=== PATIENT | female | born 1950 | race Caucasian/White ===

== ENCOUNTER 2017-10-15 15:35 | Observation (INO) | payer OTHER, SELFPAY ==
[~2017-10-15] VITALS: Ht 162.6 cm; Wt 87.3 kg
[~2017-10-15 15:35] MED LIST: 5HTP; ACET500; ALBU90OI; ASPI81CH PO; Aspir-Low81 MG; CITA20 PO; CLOB.05TC; CYCL10; DOXY100T53 PO; DULO30 PO; HYDACE10B PO; HYDCHL25 PO; LEVA.63IS; LITH300C; LORA.5; MELA3; METF500; METF500 PO; MONT10T; Naprosyn375 MG PO; Norco 5-325 Ta1 EACH PO; Prinivil10 MG PO; Prozac20 MG PO; QVAR7.3 G1; SERT100 PO; THYR; THYR60 PO; Toprol Xl25 MG PO; Veetids 500500 MG PO; [UNRECOGNIZED DRUG - OTHER]; [UNRECOGNIZED DRUG - OTHER]
[2017-10-15 16:30] LABS: BASOPHILS ABSOLUTE AUTO 0.04 K/mm3 (0.00-0.23); BASOPHILS PERCENT AUTO 0 % (0-2); EOSINOPHILS ABSOLUTE AUTO 0.18 K/mm3 (0.00-0.68); EOSINOPHILS PERCENT AUTO 1 % (0-6); Hematocrit 44.9 % (33.0-51.0); Hemoglobin 13.8 g/dL (11.5-16.0); IMMATURE GRAN ABSOLUTE AUTO 0.07 K/mm3 (0.00-0.10); IMMATURE GRAN PERCENT AUTO 0 % (0-1); LYMPHOCYTES ABSOLUTE AUTO 3.61 K/mm3 (0.84-5.20); LYMPHOCYTES PERCENT AUTO 23 % (21-46); MONOCYTES ABSOLUTE AUTO 1.03 K/mm3 (0.16-1.47); MONOCYTES PERCENT AUTO 7 % (4-13); Mean Corpuscular HGB 24.8 pg (26.0-34.0); Mean Corpuscular HGB Conc 30.7 g/dL (31.5-36.5); Mean Corpuscular Volume 81 fL (80-100); NEUTROPHILS ABSOLUTE AUTO 10.89 K/mm3 (1.96-9.15); NEUTROPHILS PERCENT AUTO 69 % (41-73); Platelet Count 470 K/mm3 (150-400); RDW Coefficient Variation 15.3 % (11.7-14.2); RDW Standard Deviation 44.3 fL (35.1-46.3); Red Blood Cell Count 5.57 M/mm3 (3.80-5.20); White Blood Cell Count 15.82 K/mm3 (4.00-11.30)
[2017-10-15 16:42] LABS: Alanine Aminotransfer (ALT/SGP 28 U/L (12-78); Albumin, Blood 3.5 g/dL (3.4-5.0); Albumin/Globulin Ratio 0.8 (0.8-1.8); Alk Phos 105 U/L (50-136); Anion Gap 10 mmol/L (6-16); Aspartate Aminotrans (AST/SGOT 27 U/L (12-37); Bilirubin, Total 0.5 mg/dL (0.1-1.0); Blood Urea Nitrogen 16 mg/dL (8-24); Bun/Creatinine Ratio 23.4 (12.0-20.0); CO2, Blood 23 mmol/L (21-32); Calcium, Blood 9.4 mg/dL (8.5-10.1); Chloride, Blood 107 mmol/L (98-108); Creatinine, Blood 0.68 mg/dL (0.40-1.00); Globulin, Blood 4.4 g/dL (2.2-4.0); Glomerular Filtration Rate >60 (60-); Glucose, Blood 154 mg/dL (70-99); Potassium, Blood 3.7 mmol/L (3.5-5.5); Sodium, Blood 140 mmol/L (136-145); Total Protein, Blood 7.9 g/dL (6.4-8.2); Troponin I 0.155 ng/mL (0.000-0.040)
[2017-10-15] MEDS ORDERED: GLIP5ER PO (18:29)
[2017-10-15] MEDS ORDERED: FINA5 PO (18:29)
[2017-10-15] MEDS ORDERED: METF500 PO (18:30)
[2017-10-15] MEDS ORDERED: PRAV20 PO (18:31)
[2017-10-15] MEDS ORDERED: ASPI81CH PO (18:43)
[2017-10-15] MEDS ORDERED: LEVA.63IS INH (18:43)
[2017-10-15] MEDS ORDERED: LORA.5 PO (18:44)
[2017-10-15] MEDS ORDERED: MELA3 PO (18:48)
[2017-10-15] MEDS ORDERED: Flonase 0.05% N16 GM (18:48)
[2017-10-15 19:46] LABS: Free Thyroxine 0.89 ng/dL (0.70-1.60)
[2017-10-15] MEDS ORDERED: NASACORT10.8 ML INH (20:51)
[2017-10-15] MEDS ORDERED: BECL25NI (20:54)
[2017-10-16 05:38] LABS: Hematocrit 39.4 % (33.0-51.0); Hemoglobin 12.1 g/dL (11.5-16.0); Mean Corpuscular HGB 24.4 pg (26.0-34.0); Mean Corpuscular HGB Conc 30.7 g/dL (31.5-36.5); Mean Corpuscular Volume 80 fL (80-100); Mean Platelet Volume 10.4 fL (9.1-12.4); Platelet Count 437 K/mm3 (150-400); RDW Coefficient Variation 15.3 % (11.7-14.2); RDW Standard Deviation 44.7 fL (35.1-46.3); Red Blood Cell Count 4.95 M/mm3 (3.80-5.20); White Blood Cell Count 13.45 K/mm3 (4.00-11.30)
[2017-10-16 06:15] LABS: Anion Gap 10 mmol/L (6-16); Blood Urea Nitrogen 18 mg/dL (8-24); Bun/Creatinine Ratio 25.9 (12.0-20.0); CO2, Blood 22 mmol/L (21-32); Calcium, Blood 9.1 mg/dL (8.5-10.1); Chloride, Blood 107 mmol/L (98-108); Creatinine, Blood 0.69 mg/dL (0.40-1.00); Glomerular Filtration Rate >60 (60-); Glucose, Blood 143 mg/dL (70-99); Potassium, Blood 3.7 mmol/L (3.5-5.5); Sodium, Blood 139 mmol/L (136-145)
[2017-10-16 08:48] LABS: Creatine Kinase MB 0.8 ng/mL (0.0-3.6); Creatine Kinase MB Index 3.5 (0.0-4.0); Troponin I 0.075 ng/mL (0.000-0.040)
[2017-10-17 06:19] LABS: Anion Gap 9 mmol/L (6-16); Blood Urea Nitrogen 15 mg/dL (8-24); Bun/Creatinine Ratio 21.4 (12.0-20.0); CO2, Blood 26 mmol/L (21-32); Calcium, Blood 8.9 mg/dL (8.5-10.1); Chloride, Blood 106 mmol/L (98-108); Glomerular Filtration Rate >60 (60-); Glucose, Blood 96 mg/dL (70-99); Magnesium, Blood 1.9 mg/dL (1.6-2.4); Potassium, Blood 3.2 mmol/L (3.5-5.5); Sodium, Blood 141 mmol/L (136-145)
[2017-10-17 07:08] LABS: International Normalized Ratio 1.15
[2017-10-17] MEDS ORDERED: LANOXIN125 MCG PO (11:32)
[2017-10-17] MEDS ORDERED: PRAV20 PO (11:34)
[2017-10-17] MEDS ORDERED: XARELTO20 MG PO (11:35)
[2017-10-17] MEDS ORDERED: METO50 PO (11:36)
[2017-10-17] MEDS ORDERED: FURO40 PO (11:36)
[2017-10-17] MEDS ORDERED: K-Dur20 MEQ PO (11:37)
== END 2017-10-17 16:42 | disposition home or self-care (01) ==
LOC: ER 15:35 → PCU 15:36
PROVIDERS: Internal Medicine; Internal Medicine Interventional Cardiology; Physician Assistant
DX: I48.0 Paroxysmal atrial fibrillation (principal); I11.0 Hypertensive heart disease with heart failure; I50.21 Acute systolic (congestive) heart failure; R79.89 Other specified abnormal findings of blood chemistry; J45.909 Unspecified asthma, uncomplicated; I48.1 Persistent atrial fibrillation; D72.829 Elevated white blood cell count, unspecified; E03.9 Hypothyroidism, unspecified; F32.9 Major depressive disorder, single episode, unspecified; E11.9 Type 2 diabetes mellitus without complications; G47.33 Obstructive sleep apnea (adult) (pediatric); M79.7 Fibromyalgia; F41.9 Anxiety disorder, unspecified; F41.0 Panic disorder [episodic paroxysmal anxiety]; Z85.42 Personal history of malignant neoplasm of other parts of uterus; Z90.49 Acquired absence of other specified parts of digestive tract; Z90.710 Acquired absence of both cervix and uterus; Z98.890 Other specified postprocedural states; Z90.722 Acquired absence of ovaries, bilateral; Z87.891 Personal history of nicotine dependence; Z79.82 Long term (current) use of aspirin; Z79.84 Long term (current) use of oral hypoglycemic drugs; Z79.899 Other long term (current) drug therapy; Z88.5 Allergy status to narcotic agent; Z91.09 Other allergy status, other than to drugs and biological substances; Z88.8 Allergy status to other drugs, medicaments and biological substances; Z91.048 Other nonmedicinal substance allergy status
CPT/HCPCS: 36415; 71046; 80048; 80053; 82550; 82553; 82947; 83735; 83880; 84100; 84439; 84443; 84484; 85025; 85027; 85610; 93005; 93010; 93306; 93454; 94640; 94660; 94762; 96361; 96372; 96374; 96375; 96376; 99152; 99153; 99285; C1769; G0378; J1644; J1650; J1940; J2250; J3010; J3480; J7030; Q9967

== ENCOUNTER 2018-02-18 17:50 | Emergency (ER) | payer OTHER, SELFPAY ==
[~2018-02-18] VITALS: Ht 162.6 cm; Wt 80.3 kg
[~2018-02-18 17:50] MED LIST changes: +BECL25NI; +FINA5 PO; +FURO40 PO; +Flonase 0.05% N16 GM; +GLIP5ER PO; +K-Dur20 MEQ PO; +LANOXIN125 MCG PO; +LEVA.63IS INH; +LORA.5 PO; +MELA3 PO; +METO50 PO; +NASACORT10.8 ML INH; +PRAV20 PO; +XARELTO20 MG PO
[2018-02-18] MEDS ORDERED: LEVFLO500 PO (19:19)
== END 2018-02-18 19:25 | disposition home or self-care (01) ==
LOC: ER 17:50
DX: S91.332A Puncture wound without foreign body, left foot, initial encounter (principal); W22.8XXA Striking against or struck by other objects, initial encounter; Z88.5 Allergy status to narcotic agent; Z88.8 Allergy status to other drugs, medicaments and biological substances; Z88.1 Allergy status to other antibiotic agents; Z79.899 Other long term (current) drug therapy; Z79.82 Long term (current) use of aspirin; Z79.84 Long term (current) use of oral hypoglycemic drugs; I10 Essential (primary) hypertension; E11.9 Type 2 diabetes mellitus without complications; F41.9 Anxiety disorder, unspecified; Z87.891 Personal history of nicotine dependence
CPT/HCPCS: 90471; 90714; 99282

== ENCOUNTER 2018-03-11 10:09 | Day surgery (SDC) | payer OTHER, SELFPAY ==
[~2018-03-11 10:09] MED LIST changes: +LEVFLO500 PO
[2018-03-11] MEDS ORDERED: GLIP5 PO (14:06)
[2018-03-11] MEDS ORDERED: NP THYROID60 MG PO (14:06)
[2018-03-11] MEDS ORDERED: METF500C PO (14:06)
[2018-03-11] MEDS ORDERED: DIGOX125 MCG PO (14:07)
[2018-03-11] MEDS ORDERED: FURO40 PO (14:08)
[2018-03-11] MEDS ORDERED: POTCHL20ER PO ×2 (14:09→14:10)
[2018-03-11] MEDS ORDERED: METO50 PO (14:13)
[2018-03-11] MEDS ORDERED: LISI20 PO (14:13)
[2018-03-11] MEDS ORDERED: QVAR REDIHALE10.6 G1 INH (14:14)
[2018-03-11] MEDS ORDERED: LORA.5 PO (14:14)
[2018-03-11] MEDS ORDERED: Xopenex Hfa15 GM INH (14:15)
[2018-03-11] MEDS ORDERED: CLOB.05TO TOP (14:16)
[2018-03-11] MEDS ORDERED: ASPI81CH PO (14:17)
[2018-03-11] MEDS ORDERED: MELA3 PO (14:18)
[2018-03-11] MEDS ORDERED: Tylenol325 MG PO (14:18)
== END 2018-03-11 22:40 | disposition home or self-care (01) ==
LOC: MOI US 10:09 → MOI MAM 10:15 → MOI US 10:15
PROC: BH00ZZZ Plain Radiography of Right Breast (ICD-10-PCS; principal; 2018-03-11)
DX: C50.811 Malignant neoplasm of overlapping sites of right female breast (principal)
CPT/HCPCS: 19285; 36415; 77065; 80048; 85025; G0279

== ENCOUNTER 2018-03-16 09:06 | Day surgery (SDC) | payer OTHER, SELFPAY ==
[~2018-03-16] VITALS: Ht 162.6 cm; Wt 79.8 kg
[~2018-03-16 09:06] MED LIST changes: +CLOB.05TO TOP; +DIGOX125 MCG PO; +GLIP5 PO; +LISI20 PO; +METF500C PO; +NP THYROID60 MG PO; +POTCHL20ER PO; +QVAR REDIHALE10.6 G1 INH; +Tylenol325 MG PO; +Xopenex Hfa15 GM INH
[2018-03-16] MEDS ORDERED: DIPH50 (10:45)
== END 2018-03-16 22:50 | disposition home or self-care (01) ==
LOC: NM 09:06 → ORSCMMR 09:06 → NM 10:00
PROVIDERS: Surgery
PROC: 0HHT0NZ Insertion of Tissue Expander into Right Breast, Open Approach (ICD-10-PCS; principal; 2018-03-16 12:00)
PROC: 0HBT0ZZ Excision of Right Breast, Open Approach (ICD-10-PCS; principal; 2018-03-16 12:00)
PROC: 07B50ZX Excision of Right Axillary Lymphatic, Open Approach, Diagnostic (ICD-10-PCS; principal; 2018-03-16 12:00)
DX: C50.811 Malignant neoplasm of overlapping sites of right female breast (principal); C77.3 Secondary and unspecified malignant neoplasm of axilla and upper limb lymph nodes; I10 Essential (primary) hypertension; E11.9 Type 2 diabetes mellitus without complications; E03.9 Hypothyroidism, unspecified; G47.33 Obstructive sleep apnea (adult) (pediatric); Z79.899 Other long term (current) drug therapy
CPT/HCPCS: 38792; 76098; 82947; 88305; 88307; 88333; 88342; A9520; J0690; J1100; J2250; J2405; J3010; J7120; Q9968

== ENCOUNTER 2019-03-27 17:40 | Observation (INO) | payer OTHER ==
[~2019-03-27] VITALS: Ht 160 cm; Wt 78.8 kg
[~2019-03-27 17:40] MED LIST changes: -DIGOX125 MCG PO; +DIPH50; -LISI20 PO; +LO-DOSE ASPIRIN81 MG PO; -METF500C PO; +METO25ER PO; +Metformin HCl1000 MG PO; -QVAR REDIHALE10.6 G1 INH; -Xopenex Hfa15 GM INH; +ZESTRIL40 MG PO
[2019-03-27 19:36] LABS: BASOPHILS ABSOLUTE AUTO 0.05 K/mm3 (0.00-0.23); BASOPHILS PERCENT AUTO 1 % (0-2); EOSINOPHILS ABSOLUTE AUTO 0.17 K/mm3 (0.00-0.68); EOSINOPHILS PERCENT AUTO 2 % (0-6); Hematocrit 47.4 % (33.0-51.0); Hemoglobin 15.1 g/dL (11.5-16.0); IMMATURE GRAN ABSOLUTE AUTO 0.04 K/mm3 (0.00-0.10); IMMATURE GRAN PERCENT AUTO 0 % (0-1); LYMPHOCYTES ABSOLUTE AUTO 2.97 K/mm3 (0.84-5.20); LYMPHOCYTES PERCENT AUTO 28 % (21-46); MONOCYTES ABSOLUTE AUTO 0.87 K/mm3 (0.16-1.47); MONOCYTES PERCENT AUTO 8 % (4-13); Mean Corpuscular HGB 26.9 pg (26.0-34.0); Mean Corpuscular HGB Conc 31.9 g/dL (31.5-36.5); Mean Corpuscular Volume 84 fL (80-100); Mean Platelet Volume 10.8 fL (9.1-12.4); NEUTROPHILS PERCENT AUTO 61 % (41-73); Platelet Count 369 K/mm3 (150-400); RDW Standard Deviation 49.4 fL (35.1-46.3); Red Blood Cell Count 5.62 M/mm3 (3.80-5.20)
[2019-03-27 19:56] LABS: Alanine Aminotransfer (ALT/SGP 26 U/L (12-78); Albumin, Blood 3.5 g/dL (3.4-5.0); Albumin/Globulin Ratio 0.9 (0.8-1.8); Alk Phos 110 U/L (50-136); Anion Gap 8 mmol/L (6-16); Aspartate Aminotrans (AST/SGOT 25 U/L (12-37); Blood Urea Nitrogen 17 mg/dL (8-24); Bun/Creatinine Ratio 23.3 (12.0-20.0); CO2, Blood 25 mmol/L (21-32); Calcium, Blood 9.8 mg/dL (8.5-10.1); Chloride, Blood 106 mmol/L (98-108); Creatinine, Blood 0.73 mg/dL (0.40-1.00); Glomerular Filtration Rate >60 (60-); Glucose, Blood 118 mg/dL (70-99); Potassium, Blood 4.1 mmol/L (3.5-5.5); Sodium, Blood 139 mmol/L (136-145); Total Protein, Blood 7.5 g/dL (6.4-8.2); Troponin I <0.015 ng/mL (0.000-0.040)
[2019-03-27] MEDS ORDERED: DIGOX125 MCG PO (21:46)
[2019-03-27] MEDS ORDERED: OMEPRAZOLE20 MG PO (22:19)
[2019-03-27] MEDS ORDERED: Xopenex Hfa15 GM INH (22:20)
[2019-03-27] MEDS ORDERED: QVAR REDIHALE10.6 G1 INH (22:20)
[2019-03-27] MEDS ORDERED: Coq-10100 MG PO (22:21)
[2019-03-27] MEDS ORDERED: MELATONIN5 M1 PO (22:21)
[2019-03-27] MEDS ORDERED: Potassium99 MG PO (22:22)
[2019-03-27] MEDS ORDERED: BIOTIN PO (22:23)
[2019-03-28 04:33] LABS: Hematocrit 45.5 % (33.0-51.0); Hemoglobin 14.3 g/dL (11.5-16.0); Mean Corpuscular HGB Conc 31.4 g/dL (31.5-36.5); Mean Corpuscular Volume 86 fL (80-100); Mean Platelet Volume 10.1 fL (9.1-12.4); Platelet Count 344 K/mm3 (150-400); RDW Coefficient Variation 15.8 % (11.7-14.2); RDW Standard Deviation 49.4 fL (35.1-46.3); Red Blood Cell Count 5.29 M/mm3 (3.80-5.20); White Blood Cell Count 13.52 K/mm3 (4.00-11.30)
[2019-03-28 04:47] LABS: International Normalized Ratio 1.15
[2019-03-28 04:49] LABS: Anion Gap 6 mmol/L (6-16); Blood Urea Nitrogen 16 mg/dL (8-24); CO2, Blood 25 mmol/L (21-32); Chloride, Blood 102 mmol/L (98-108); Creatinine, Blood 0.67 mg/dL (0.40-1.00); Glomerular Filtration Rate >60 (60-); Glucose, Blood 200 mg/dL (70-99); Potassium, Blood 4.2 mmol/L (3.5-5.5); Sodium, Blood 133 mmol/L (136-145)
[2019-03-28 07:43] LABS: Source, Urine Catheter
[2019-03-28 08:12] LABS: Bilirubin, Urine Neg (Neg); Blood, Urine Neg (Neg); Glucose Qualitative, Urine Neg (Neg); Ketones, Urine 3+ (Neg); Leukocyte Esterase, Urine Neg (Neg); Nitrite, Urine Neg (Neg); Protein, Urine 3+ (Neg); Specific Gravity, Urine 1.025 (1.003-1.022); Urobilinogen, Urine 1+ (Normal)
[2019-03-28 08:49] LABS: Appearance, Urine Hazy (Clear); Color, Urine Yellow (P-Yellow)
[2019-03-28 08:55] LABS: Red Blood Cells, Urine Not Seen /hpf (0-2); Squamous Epithelial Cells Many /hpf (Few)
[2019-03-28 08:56] LABS: Bacteria Few /hpf; White Blood Cells, Urine Rare /hpf (0-5)
[2019-03-28 09:07] LABS: CHOL/HDL RATIO 5.2; Cholesterol 160 mg/dL (50-200); HDL Cholesterol 31 mg/dL (>39); LDL/HDL RATIO 3.6; Low Density Lipoprotein Chol 112 mg/dL (0-110); Triglycerides 84 mg/dL (30-160); Very Low Density Lipoprot Chol 16 mg/dL (6-32)
[2019-03-28 09:14] LABS: Digoxin (Lanoxin) 0.33 ug/mL (0.80-2.00)
--- NOTE | 2019-03-28 13:05 | NUR ---
PATIENT CONTINUES TO HAVE SOME ANXIETY THIS MORNING. SHE IS RESTLESS PHYSICALLY AND REPORTS FEELING ANXIOUS. UTILIZED DISTRACTION (TV, PT, MULTIPLE TESTS IN ROOM) AND MEDICATION (ATIVAN). PATIENT APPEARS MORE SETTLED AND REPORTS SHE IS STILL FEELING ANXIOUS. ENCOURAGED HER TO GET SOME REST (SHE ALSO REPORTS LACK OF SLEEP) AND PROVIDED A QUIET ENVIRONMENT. CALL LIGHT WITHIN REACH, BED ALARM ON.
--- NOTE | 2019-03-28 18:41 | NUR ---
PATIENT CONTINUED TO HAVE SOME ANXIETY TODAY. PATIENT ABLE TO NAP INTERMITTANTLY. PATIENT ABLE TO USE SOFT TOUCH CALL LIGHT APPROPRIATELY TO VOID. RIGHT LEG CONTINUES TO BE WEAK AND FOR THE PATIENT TO HAVE MINIMAL CONTROL (BARELY ABLE TO BEND IN THE BED, DRAGS ON THE FLOOR FOR STAND PIVOT TRANSFERS). RIGHT HAND AND ARM ALSO CONTINUES TO BE WEAK WITH MINIMAL CONTROL (HARD FOR HER TO LIFT, GRASP OR PULL). PATIENT CONTINUES TO HAVE SOME CONFUSION AND FORGETFULNESS (EX: SHE FORGOT THAT SHE TOLD HER TO NOT COME IN AND VISIT HER TODAY). PATIENT IS PLEASANT, REDIRECTABLE, AND FOLLOWS COMMANDS. PATIENT HAS A FAIR APPETITE (UP TO 75% OF MEALS) AND IS ABLE TO FEED HERSELF WITHOUT DIFFICULTY.
--- NOTE | 2019-03-28 19:56 | NUR ---
HEARD ALARM GO OFF, HEADED DOWN HALLWAY IMMEDIETELY. WALKED INTO ROOM TO FIND PATIENT CRAWLING OFF OF THE BED ONTO THE FLOOR. ATTEMPTED TO STOP HER BUT SHE KEPT CRAWLING AND WAS HEADING TOWARDS HER BSC. I IMMEDIETELY CALLED FOR LIFTING ASSISTANCE. I ASKED HER IF SHE NEEDED TO USE THE BATHROOM AND SHE SAID YES. I ASKED HER WHY SHE DIDN'T USE HER CALL LIGHT, SHE SAID SHE WAS "TIRED OF PESTERING YOU PEOPLE" I EXPLAINED TO HER THAT THIS IS WHAT WE ARE HERE FOR AND SHE NEEDS TO USE HER CALL LIGHT FOR SAFETY. PT WAS TEARFUL AND SEEMED A LITTLE CONFUSED. OTHER STAFF CAME IN AND WE ASSISTED HER TO THE BSC, CHANGED HER ATTENDS AND GOT HER BACK INTO BED AGAIN. WILL POSSIBLY NEED A LEEANNE RESTRAINT FOR HIS PATIENT SHE SEEMS VERY FORGETFUL AND A LITTLE CONFUSED. PRIMARY NURSE WILL BE SPEAKING WITH THE DR ABOUT THIS. WE MADE SURE HER BED ALARM WAS BACK ON AGAIN BEFORE WE LEFT THE PATIENT'S ROOM. NO OTHER APPARENT SIGNS OF DISTRESS. PT DENIES NEED FOR ANYTHING ELSE AT THIS TIME. CALL LIGHT IS IN REACH. NO APPARENT INJURIES TO THE PATIENT, PT DENIED ANY DISCOMFORT OTHER THAN THE NEED TO USE THE BSC. INSURANCE UNDERWRITER SALES WILL BE DOING VS.
--- NOTE | 2019-03-28 20:22 | NUR ---
DISCUSSED PT'S RECENT IMPULSIVITY, CONFUSION AND FALL RISK W/CIRO, PULMONOLOGIST AND LEEANNE VEST RESTRAINT RX'D AND APPLIED. BED ALARM REMAINS ON W/ADDITIONAL FALL PRECAUTIONS IN PLACE.
--- NOTE | 2019-03-28 23:30 | NUR ---
CIRO AFRICAN HISTORY PROFESSOR ALERTED TO PT'S PERSISTENT HYPERTENSION (BP 160'S-170'S/100'S) DESPITE RECIEVING ANXIETY AND SCHEDULED BP MEDS. HE WAS ALERTED TO KNOWN AFIB WELL W/HR 100'S-120'S BPM. NEW ORDERS RECIEVED FOR LABETOLOL 10MG IV Q4H PRN FOR SBP>200 AND NS AT 200 ML/HR X1L. WILL COMMENCE MEDS UPON APPROVAL BY PHARMACY.
--- NOTE | 2019-03-29 04:28 | NUR ---
BP HASN'T IMPROVED BUT SHE DOES NOT MEET PRN LABETOLOL PARAMETERS. HR SLIGHTLY IMPROVED W/IVF INFUSING. SHE IS ASYMPTOMATIC OF CARDIAC DISTRESS THOUGH.
--- NOTE | 2019-03-29 06:03 | NUR ---
SUMMARY: PT IS ORIENTED X2 BUT FORGETFULL AND IS FALL RISK MAKING ATTEMPTS OOB BY SELF. SHE REQUIRED LEEANNE VEST ORDER THIS SHIFT AND THIS HASN'T BEEN ABLE TO BE SAFELY DC'D. SHE CALLS APPROPRIATELY SOME OF THE TIME BUT IS STILL MAKING ATTEMPTS OOB BY SELF. ATIVAN WAS RECIEVED PRN FOR RESTLESS, IMPULSIVITY AND ANXIETY X2 DOSES. PT HAS ALSO HAD PERSISTENT HYPERTENSION THIS SHIFT W/NEW ORDER RECIEVED FOR LABETOLOL FOR SBP>200 BUT PT HASNT MET THESE PARAMETERS. CIRO RX'D 1L NS AT 200 ML/HR FOR TACHYCARDIA W/KNOWN HX AFIB AND PT IS NOW MORE SOB W/EXERTION AND HAS DEVELOPED MILD CRACKLES IN LUNG BASES THIS AM. WHEEZES ARE INTERMITTENT W/BX TX'S RECIEVED. I/O'S ARE (+) BUT PT HAS BEEN INCONTINENT MULTIPLE TIMES SO FLUID BALANCE ISN'T ACCURATE. PT LIKELY NEEDS SOME DIURESIS AND WILL ENSURE DAY STAFF ARE AWARE. PAGED BUT AWAITING CALL BACK AT THIS TIME. SHE TOLERATES HOME CPAP W/CONT BIOX INTACT. AFIB AT 90'S-100'S PER TELEMETRY. NO ACUTE CHANGES, VSS/AFEBRILE. WCTM AND REPORT TO DAY RN.
--- NOTE | 2019-03-29 15:38 | NUR ---
Per admit trigger, I attempted to meet with pt regarding an Advanced Directive. She is quite confused, and in my estimation,is unable to understand this document. No family at bedside. Per chart, spouse is attentive and a capable decision-maker. Rajwinder is [employer]. I will remain available.
--- NOTE | 2019-03-29 17:34 | NUR ---
SHIFT SUMMARY: PATIENT HAS BEEN ALERT TO SELF AND SITUATION THIS SHIFT WITH NO C/O PAIN. PATIENT CONTIUES ON TELE WITH A-FIB. CT WAS COMPLETED THIS AFTERNOON AFTER CHARGE NURSE WAS ABLE TO PLACE A PERIPHERAL LINE IN THE LAC. PATIENT IS A 2 PERSON ASSIST FOR TRANSFERS AND IS USING THE [employer] COMMODE FOR TOILETING. PATIENT HAS BEEN PLEASANT AND COOPERATIVE WITH CARE, USING CALL LIGHT FOR HELP WHEN NEEDED. WAS AT BEDSIDE THIS MORNING AND FRIENDS HAVE BEEN IN AND OUT THIS AFTERNOON. PATIENT IS UP TO CHAIR FOR MEALS.
--- NOTE | 2019-03-29 20:15 | NUR ---
PT HAS IV'S PRESENT TO R.WRIST AND L.AC, BOTH SL. L.AC SITE WAS PLACED BY STAFF DURING CTA AND PREVIOUS R.UA IV INFILTRATED PER SHIFT REPORT.
--- NOTE | 2019-03-29 20:21 | NUR ---
PT'S SON (ANNE-MARIE STEPHENS) CALLED FOR AN UPDATE ON PT'S STATUS. HE INITIALLY SPOKE W/HER ON THE PHONE THEN QUESTIONED RN TO WHETHER SPEECH AND CURRENT MENTATION WAS HOW SHE'D BEEN. HE ADMITTED THAT HER CURRENT PRESENTATION WAS NOT BASELINE FOR HER AND HE'D HAD NO IDEA SHE'D BEEN OFF HER HOME MEDS OR EXPERIENCING STROKE LIKE SYMPTOMS. HE'D HEARD FROM PT'S [employer] FRIEND THIS AFTERNOON THAT SHE'D BEEN ADMITTED W/A POSSIBLE STROKE WHICH WAS NEW NEWS TO HIM. HE ADMITTED THAT PT'S ISN'T "100% HIMSELF AND CARES DEEPLY BUT HADN'T BEEN ABLE TO CLEARLY RELAY ANY INFO" TO HIM. PT AUTHORIZED SON TO BE ADDED TO HIPPA DISCLOSURE AND PROGRESS NOTE/CTA RESULTS WERE DISCUSSED W/HIM. HE WAS VERY GRATEFUL FOR THE UPDATE AND INTENDS TO COME VISIT FROM [place] SOON. HE WOULD ALSO LIKE TO BE NOTIFIED OF ANY UPDATES, CHANGES OR TRANSFERS TO ANOTHER FACITITY AND STATED HE IS REACHABLE ALL HOURS OF THE DAY/NIGHT. HIS PHONE NUMBERS ARE CELL AND HOME . PT IS POSSIBLE COBRA T/F TO [facility] PENDING NOREEN CONSULTATION AND INSTRUCTION FROM 'S. SON WAS MADE AWARE OF THIS WELL.
--- NOTE | 2019-03-29 22:10 | NUR ---
CELESTE TANNER CONSULTING W/PT IN ROOM AND DISCUSSING PT STATUS, STUDIES AND RESULTS W/NEUROLOGIST VIA PHONE AT THIS TIME. THIS RN AWAITING FURTHER INSTRUCTION. PT W/O ACUTE CHANGES AND NEUROS ARE STABLE CURRENTLY. SHE CONT'S TO HAVE R.SIDE WEAKNESS/DEFICITS BUT THESE HAVEN'T WORSENED. WCTM AND IMPLEMENT ANY NEW ORDERS RECIEVED.
--- NOTE | 2019-03-30 00:03 | NUR ---
NO NEW ORDERS RECIEVED FROM CELESTE TANNER AFTER HIS CONSULTATION. HE STATED MRI IS LIKELY NEEDED AND HE WILL DISCUSS THIS W/DAY MD. NO T/F ORDERS IN PLACE TONIGHT BUT PT AGREED TO T/F TO [facility] OR [facility] IF THIS IS NECESSARY. WCTM CLOSELY. SHE REMAINS VERY FATIGUED AND IS SLEEPING COMFORTABLY AT THIS TIME. NEURO CHECKS UNCHANGED.
--- NOTE | 2019-03-30 05:07 | NUR ---
SUMMARY: NEURO AT [facility] WAS CONSULTED BY CIRO (WHARF HAND) THIS SHIFT W/CTA RESULTS REVIEWED. THEY RECOMMENDED DISCUSSING CASE W/RADIOLOGY TO SEE IF PT COULD HAVE MRI OF HEAD AND IN THE EVENT OF ABNORMAL RESULTS OR WORSENING SYMPTOMS, T/F WOULD BE ACCEPTED. IT WAS NOT DEEMED NECESSARY AT THIS TIME. SEE CIRO'S PROGRESS NOTE FOR THEIR RECOMMENDATIONS. NO NEW ORDERS WERE PLACED BY HIM THIS SHIFT PT'S CURRENT TX SEEM TO BE IN ALIGNMENT W/THEIR SUGGESTIONS. NEUROS CURRENTLY REMAIN STABLE. PT CONVERSES MOSTLY APPROPRIATELY BUT IS FORGEFULL AT TIMES. SHE HASN'T BEEN IMPULSIVE OOB THIS SHIFT AND HASN'T REQUIRED PRN ATIVAN. SHE ALSO USED CALL LIGHT APPROPRIATELY T/O NOCTE TO ALERT STAFF OF INCONTINENCE AND NEED FOR ATTENDS CHANGES. R.SIDE DEFICITS PERSIST W/WEAKNESS GREATER TO THIS SIDE AND COORDINATION LACKING. THIS RN HAS NOT AMBULATED PT BUT IT IS REPORTED THAT PT DRAGS RLE DURING T/F'S. HTN PERSISTS BUT ALLOWING PERMISSIVE HTN WAS ADVISED, SBP WAS 160'S AND DBP 100'S. SHE WORE HOME CPAP W/CONT BIOX INTACT. PT REMAINS IN AFIB AT 80'S-100'S PER TELEMETRY. NO ACUTE CHANGES, VSS/AFEBRILE. SON CALLED AND PT ADDED HIM TO HIPPA FORM SO UPDATE WAS PROVIDED. HE INTENDS TO VISIT FROM [facility] SOON AND WOULD LIKE INFORMED OF ANY CHANGES OR PENDING T/F'S. WCTM AND REPORT TO DAY RN.
--- NOTE | 2019-03-30 17:11 | NUR ---
SHIFT SUMMARY: PATIENT HAS BEEN A/O X 3 THIS SHIFT SHOWING MORE CLARITY FROM YESTERDAY. SPEECH IS CLEAR AND PATIENT IS PLEASANT AND MAKING JOKES WITH NURSING STAFF. NO C/ O PAIN. PATIENT CONTINUES TO BE COMPLIANT WITH CARE. PATIENT CONTINUES TO USE THE BEDSIDE COMMODE FOR TOILETING. VERY MILD RIGHTSIDE WEAKNESS OBSERVED. MRI WAS COMPLETED TODAY. SON WAS MADE AWARE. PATIENT HAS HAD VISITORS ON AND OFF ALL DAY.
--- NOTE | 2019-03-31 04:53 | NUR ---
SHIFT SUMMARY PT UP WITH ASSIST OF ONE AND GAIT BELT TO BEDSIDE COMMODE, HAD BOWEL MOVEMENT AND VOIDED IN LARGE AMOUNTS. PT ALERT AND ORIENTED, CPAP ON DURING THE NIGHT. PT HAS SLEPT WELL T/O NIGHT. NO ACUTE EVENTS NOTED, WILL CONTINUE TO MONITOR.
[2019-03-31 07:42] LABS: BASOPHILS ABSOLUTE AUTO 0.07 K/mm3 (0.00-0.23); BASOPHILS PERCENT AUTO 1 % (0-2); EOSINOPHILS ABSOLUTE AUTO 0.32 K/mm3 (0.00-0.68); EOSINOPHILS PERCENT AUTO 3 % (0-6); Hemoglobin 14.9 g/dL (11.5-16.0); IMMATURE GRAN ABSOLUTE AUTO 0.04 K/mm3 (0.00-0.10); IMMATURE GRAN PERCENT AUTO 0 % (0-1); LYMPHOCYTES PERCENT AUTO 26 % (21-46); MONOCYTES PERCENT AUTO 10 % (4-13); Mean Corpuscular HGB 26.8 pg (26.0-34.0); Mean Corpuscular HGB Conc 31.7 g/dL (31.5-36.5); Mean Corpuscular Volume 85 fL (80-100); Mean Platelet Volume 10.2 fL (9.1-12.4); NEUTROPHILS ABSOLUTE AUTO 6.18 K/mm3 (1.96-9.15); NEUTROPHILS PERCENT AUTO 61 % (41-73); Platelet Count 312 K/mm3 (150-400); RDW Coefficient Variation 16.5 % (11.7-14.2); RDW Standard Deviation 48.6 fL (35.1-46.3); Red Blood Cell Count 5.55 M/mm3 (3.80-5.20); White Blood Cell Count 10.21 K/mm3 (4.00-11.30)
[2019-03-31 08:06] LABS: Anion Gap 7 mmol/L (6-16); Blood Urea Nitrogen 18 mg/dL (8-24); Bun/Creatinine Ratio 25.2 (12.0-20.0); CO2, Blood 29 mmol/L (21-32); Chloride, Blood 106 mmol/L (98-108); Creatinine, Blood 0.71 mg/dL (0.40-1.00); Glomerular Filtration Rate >60 (60-); Glucose, Blood 133 mg/dL (70-99); Potassium, Blood 3.7 mmol/L (3.5-5.5); Sodium, Blood 142 mmol/L (136-145)
[2019-03-31] MEDS ORDERED: ASPI325 PO (10:13)
[2019-03-31] MEDS ORDERED: FURO40 PO (10:13)
[2019-03-31] MEDS ORDERED: XARELTO20 MG PO (10:14)
[2019-03-31] MEDS ORDERED: SPIR25 PO (10:14)
--- NOTE | 2019-03-31 13:21 | NUR ---
SUMMARY[facility] REPORT CALLED TO RENZO THE NURSE, TRANSPORTATION ARRANGED BY DISCHARGE PLANNERS, PT TAKEN OUT SAFELY VIA WHEELCHAIR
== END 2019-03-31 13:10 ==
LOC: ER 17:40 → MEDS 17:41
PROVIDERS: Emergency Medicine; Internal Medicine; Nurse Practitioner Acute Care; ADMIT Hospitalist
DX: I63.9 Cerebral infarction, unspecified (principal); R27.0 Ataxia, unspecified; I11.0 Hypertensive heart disease with heart failure; I50.42 Chronic combined systolic (congestive) and diastolic (congestive) heart failure; E11.9 Type 2 diabetes mellitus without complications; I48.2 Chronic atrial fibrillation; J45.20 Mild intermittent asthma, uncomplicated; F41.1 Generalized anxiety disorder; G47.33 Obstructive sleep apnea (adult) (pediatric); E66.9 Obesity, unspecified; Z79.82 Long term (current) use of aspirin; Z79.899 Other long term (current) drug therapy; Z79.84 Long term (current) use of oral hypoglycemic drugs; Z88.5 Allergy status to narcotic agent; Z91.048 Other nonmedicinal substance allergy status; Z68.29 Body mass index [BMI] 29.0-29.9, adult
CPT/HCPCS: 36415; 70450; 70496; 70498; 70551; 80048; 80053; 80061; 80162; 81001; 82947; 83735; 84443; 84484; 85025; 85027; 85610; 85651; 86140; 93005; 93010; 93880; 94640; 94762; 96372; 96374; 97110; 97116; 97162; 97166; 97530; 97535; 99285-25; A9270; C8929; G0378; J1650; J2060; J7030; Q9957; Q9967

== ENCOUNTER 2019-05-03 21:58 | Emergency (ER) | payer OTHER ==
[~2019-05-03] VITALS: Ht 160 cm; Wt 72.6 kg
[~2019-05-03 21:58] MED LIST changes: +ASPI325 PO; +BIOTIN PO; +Coq-10100 MG PO; +DIGOX125 MCG PO; +MELATONIN5 M1 PO; +OMEPRAZOLE20 MG PO; +Potassium99 MG PO; +QVAR REDIHALE10.6 G1 INH; +SPIR25 PO; +Xopenex Hfa15 GM INH
[2019-05-03 22:25] LABS: BASOPHILS ABSOLUTE AUTO 0.06 K/mm3 (0.00-0.23); BASOPHILS PERCENT AUTO 1 % (0-2); EOSINOPHILS ABSOLUTE AUTO 0.14 K/mm3 (0.00-0.68); EOSINOPHILS PERCENT AUTO 1 % (0-6); Hematocrit 49.4 % (33.0-51.0); Hemoglobin 15.8 g/dL (11.5-16.0); IMMATURE GRAN ABSOLUTE AUTO 0.11 K/mm3 (0.00-0.10); IMMATURE GRAN PERCENT AUTO 1 % (0-1); LYMPHOCYTES ABSOLUTE AUTO 3.61 K/mm3 (0.84-5.20); LYMPHOCYTES PERCENT AUTO 31 % (21-46); MONOCYTES ABSOLUTE AUTO 0.87 K/mm3 (0.16-1.47); MONOCYTES PERCENT AUTO 7 % (4-13); Mean Corpuscular HGB 27.6 pg (26.0-34.0); Mean Corpuscular Volume 86 fL (80-100); Mean Platelet Volume 10.2 fL (9.1-12.4); NEUTROPHILS ABSOLUTE AUTO 6.94 K/mm3 (1.96-9.15); NEUTROPHILS PERCENT AUTO 59 % (41-73); Platelet Count 264 K/mm3 (150-400); RDW Coefficient Variation 14.5 % (11.7-14.2); RDW Standard Deviation 45.5 fL (35.1-46.3); Red Blood Cell Count 5.72 M/mm3 (3.80-5.20); White Blood Cell Count 11.73 K/mm3 (4.00-11.30)
[2019-05-03 22:47] LABS: Alanine Aminotransfer (ALT/SGP 57 U/L (12-78); Albumin, Blood 3.6 g/dL (3.4-5.0); Albumin/Globulin Ratio 0.8 (0.8-1.8); Alk Phos 145 U/L (50-136); Anion Gap 8 mmol/L (6-16); Aspartate Aminotrans (AST/SGOT 39 U/L (12-37); Bilirubin, Total 0.5 mg/dL (0.1-1.0); Blood Urea Nitrogen 16 mg/dL (8-24); Bun/Creatinine Ratio 18.7 (12.0-20.0); CO2, Blood 26 mmol/L (21-32); Calcium, Blood 9.7 mg/dL (8.5-10.1); Chloride, Blood 104 mmol/L (98-108); Creatinine, Blood 0.86 mg/dL (0.40-1.00); Globulin, Blood 4.5 g/dL (2.2-4.0); Glomerular Filtration Rate >60 (60-); Glucose, Blood 175 mg/dL (70-99); Potassium, Blood 4.7 mmol/L (3.5-5.5); Sodium, Blood 138 mmol/L (136-145); Total Protein, Blood 8.1 g/dL (6.4-8.2); Troponin I <0.015 ng/mL (0.000-0.040)
[2019-05-03] MEDS ORDERED: OMEPRAZOLE MAGN20 MG PO (23:21)
[2019-05-03] MEDS ORDERED: Spironolactone25 MG PO (23:35)
== END 2019-05-03 23:57 | disposition home or self-care (01) ==
LOC: ER 21:58
PROVIDERS: Emergency Medicine
DX: I48.91 Unspecified atrial fibrillation (principal); Z88.5 Allergy status to narcotic agent; Z88.8 Allergy status to other drugs, medicaments and biological substances; Z79.899 Other long term (current) drug therapy; Z79.84 Long term (current) use of oral hypoglycemic drugs; Z79.82 Long term (current) use of aspirin; E11.9 Type 2 diabetes mellitus without complications; F41.9 Anxiety disorder, unspecified; K21.9 Gastro-esophageal reflux disease without esophagitis; Z87.891 Personal history of nicotine dependence
CPT/HCPCS: 36415; 71046; 80053; 84484; 85025; 93005; 93010; 99285-25

== ENCOUNTER → 2019-05-04 | Outpatient (CLI) | payer OTHER ==
[~2019-05-04] MED LIST changes: +OMEPRAZOLE MAGN20 MG PO; +Spironolactone25 MG PO
[2019-05-06 16:06] LABS: HPV 16 Negative (Negative); HPV 18 Negative (Negative); HPV OTHER HR TYPES Negative (Negative)
== END | disposition home or self-care (01) ==
LOC: LAB 12:17 → LAB SHORT 12:17
PROVIDERS: Obstetrics & Gynecology
DX: Z01.419 Encounter for gynecological examination (general) (routine) without abnormal findings (principal)
CPT/HCPCS: 87624; G0123

== ENCOUNTER 2019-09-20 21:43 | Emergency (ER) | payer OTHER ==
[~2019-09-20] VITALS: Ht 162.6 cm; Wt 73.9 kg
[2019-09-20] MEDS ORDERED: ASCO500 PO (23:18)
[2019-09-20] MEDS ORDERED: TRAZ50 PO (23:24)
[2019-09-20] MEDS ORDERED: ACET500 PO (23:26)
[2019-09-21] MEDS ORDERED: PENVK500 PO (00:12)
== END 2019-09-21 00:45 | disposition home or self-care (01) ==
LOC: ER 21:43
DX: K02.9 Dental caries, unspecified (principal); E11.9 Type 2 diabetes mellitus without complications; G47.30 Sleep apnea, unspecified; F41.9 Anxiety disorder, unspecified; I48.91 Unspecified atrial fibrillation; I50.9 Heart failure, unspecified; K21.9 Gastro-esophageal reflux disease without esophagitis; Z87.891 Personal history of nicotine dependence; Z88.5 Allergy status to narcotic agent; Z88.8 Allergy status to other drugs, medicaments and biological substances; Z79.4 Long term (current) use of insulin; Z79.899 Other long term (current) drug therapy; Z79.82 Long term (current) use of aspirin
CPT/HCPCS: 99282; A9270

== ENCOUNTER 2023-02-15 17:59 | Emergency (ER) | payer OTHER ==
[~2023-02-15] VITALS: Ht 160 cm; Wt 74.8 kg
[~2023-02-15 17:59] MED LIST changes: +ACET500 PO; +ASCO500 PO; +Celexa20 MG PO; +EUTHYROX88 MCG PO; +PENVK500 PO; +TRAZ50 PO; +XARELTO10 M1 PO
[2023-02-15] MEDS ORDERED: Ventolin/Prove6.7 GM INH (18:35)
[2023-02-15] MEDS ORDERED: XARELTO20 M1 PO (18:35)
[2023-02-15] MEDS ORDERED: ZOLOFT25 MG PO (18:36)
[2023-02-15] MEDS ORDERED: FLOVENT HFA12 GM (18:36)
[2023-02-15 19:26] LABS: Source, Urine Clean Catch
[2023-02-15 19:30] LABS: Bilirubin, Urine Neg (Neg); Blood, Urine 2+ (Neg); Glucose Qualitative, Urine 4+ (Neg); Ketones, Urine 2+ (Neg); Leukocyte Esterase, Urine 2+ (Neg); Nitrite, Urine Neg (Neg); Protein, Urine 3+ (Neg); Urobilinogen, Urine NORM (Normal)
[2023-02-15 19:35] LABS: BASOPHILS ABSOLUTE AUTO 0.13 K/mm3 (0.00-0.23); BASOPHILS PERCENT AUTO 1 % (0-2); EOSINOPHILS ABSOLUTE AUTO 0.25 K/mm3 (0.00-0.68); EOSINOPHILS PERCENT AUTO 1 % (0-6); Hematocrit 41.4 % (33.0-51.0); Hemoglobin 13.7 g/dL (11.5-16.0); IMMATURE GRAN ABSOLUTE AUTO 0.28 K/mm3 (0.00-0.10); IMMATURE GRAN PERCENT AUTO 2 % (0-1); LYMPHOCYTES ABSOLUTE AUTO 3.35 K/mm3 (0.84-5.20); LYMPHOCYTES PERCENT AUTO 17 % (21-46); MONOCYTES ABSOLUTE AUTO 0.96 K/mm3 (0.16-1.47); MONOCYTES PERCENT AUTO 5 % (4-13); Mean Corpuscular HGB Conc 33.1 g/dL (31.5-36.5); Mean Corpuscular Volume 85 fL (80-100); Mean Platelet Volume 10.2 fL (9.1-12.4); NEUTROPHILS ABSOLUTE AUTO 14.27 K/mm3 (1.96-9.15); NEUTROPHILS PERCENT AUTO 74 % (41-73); Platelet Count 387 K/mm3 (150-400); RDW Coefficient Variation 13.2 % (11.7-14.2); RDW Standard Deviation 40.8 fL (35.1-46.3); Red Blood Cell Count 4.89 M/mm3 (3.80-5.20); White Blood Cell Count 19.24 K/mm3 (4.00-11.30)
[2023-02-15 19:41] LABS: Appearance, Urine Hazy (Clear); Color, Urine Pale Yellow (P-Yellow)
[2023-02-15 19:42] LABS: Bacteria Many /hpf; Hyaline Casts 0-2 /lpf (0-2); Squamous Epithelial Cells Few /hpf (Few)
[2023-02-15 19:48] LABS: International Normalized Ratio 1.03; Prothrombin Time Results 10.8 Sec (9.7-11.5)
[2023-02-15 20:15] LABS: Albumin, Blood 3.4 g/dL (3.4-5.0); Albumin/Globulin Ratio 0.8 (0.8-1.8); Bilirubin, Total 0.4 mg/dL (0.1-1.0); Bun/Creatinine Ratio 25.2 (12.0-20.0); Calcium, Blood 9.3 mg/dL (8.5-10.1); Creatinine, Blood 0.68 mg/dL (0.40-1.00); Globulin, Blood 4.2 g/dL (2.2-4.0); Potassium, Blood 3.7 mmol/L (3.5-5.5); Total Protein, Blood 7.6 g/dL (6.4-8.2)
[2023-02-15 21:35] VITALS: BP 132/98
== END 2023-02-15 21:52 | disposition short-term general hospital (02) ==
LOC: ER 17:59
PROVIDERS: Student in an Organized Health Care Education/Training Program
DX: S06.6X0A Traumatic subarachnoid hemorrhage without loss of consciousness, initial encounter (principal); S00.03XA Contusion of scalp, initial encounter; N39.0 Urinary tract infection, site not specified; I10 Essential (primary) hypertension; E11.9 Type 2 diabetes mellitus without complications; I50.9 Heart failure, unspecified; I48.91 Unspecified atrial fibrillation; Z23 Encounter for immunization; Z88.5 Allergy status to narcotic agent; Z91.048 Other nonmedicinal substance allergy status; Z88.8 Allergy status to other drugs, medicaments and biological substances; Z79.01 Long term (current) use of anticoagulants; Z79.84 Long term (current) use of oral hypoglycemic drugs; Z85.42 Personal history of malignant neoplasm of other parts of uterus; Z87.891 Personal history of nicotine dependence; W01.198A Fall on same level from slipping, tripping and stumbling with subsequent striking against other object, initial encounter
CPT/HCPCS: 70450; 72125; 80053; 81001; 85025; 85610; 86850; 86900; 86901; 87077; 87086; 87186; 90471; 90714; 93005; 93010; 96365; 96367; 96375; 99285-25; A9270; J0696; J1953; J2405; J3010; J7050; J7168

== ENCOUNTER 2023-08-03 06:28 | Emergency (ER) | payer OTHER ==
[~2023-08-03] VITALS: Ht 160 cm; Wt 74.8 kg
[~2023-08-03 06:28] MED LIST changes: +FLOVENT HFA12 GM; +Ventolin/Prove6.7 GM INH; +XARELTO20 M1 PO; +ZOLOFT25 MG PO
[2023-08-03] MEDS ORDERED: SERT50 PO (07:57)
[2023-08-03] MEDS ORDERED: LISI20 PO (07:58)
[2023-08-03] MEDS ORDERED: LIDO700A20 TOP (08:41)
[2023-08-03] MEDS ORDERED: NAPR500 PO (08:41)
[2023-08-03 09:19] VITALS: BP 138/93
== END 2023-08-03 11:00 | disposition home or self-care (01) ==
LOC: ER 06:28
DX: S30.0XXA Contusion of lower back and pelvis, initial encounter (principal); R05.9 Cough, unspecified; E11.9 Type 2 diabetes mellitus without complications; I50.9 Heart failure, unspecified; I48.91 Unspecified atrial fibrillation; Z85.42 Personal history of malignant neoplasm of other parts of uterus; Z86.16 Personal history of COVID-19; Z88.5 Allergy status to narcotic agent; Z88.8 Allergy status to other drugs, medicaments and biological substances; Z91.048 Other nonmedicinal substance allergy status; Z79.01 Long term (current) use of anticoagulants; Z79.84 Long term (current) use of oral hypoglycemic drugs; Z87.891 Personal history of nicotine dependence; W18.30XA Fall on same level, unspecified, initial encounter
CPT/HCPCS: 72100; 72170; 99284-25; A9270

== ENCOUNTER 2023-09-13 17:16 | Emergency (ER) | payer OTHER ==
[~2023-09-13] VITALS: Ht 162.6 cm; Wt 74.8 kg
[~2023-09-13 17:16] MED LIST changes: +LIDO700A20 TOP; +LISI20 PO; +NAPR500 PO; +SERT50 PO
[2023-09-13 17:25] VITALS: BP 129/97
== END 2023-09-13 19:29 | disposition home or self-care (01) ==
LOC: ER 17:16
DX: S62.316A Displaced fracture of base of fifth metacarpal bone, right hand, initial encounter for closed fracture (principal); S50.01XA Contusion of right elbow, initial encounter; S80.01XA Contusion of right knee, initial encounter; W18.30XA Fall on same level, unspecified, initial encounter; Z88.5 Allergy status to narcotic agent; Z88.8 Allergy status to other drugs, medicaments and biological substances; Z88.1 Allergy status to other antibiotic agents; Z79.899 Other long term (current) drug therapy; E11.9 Type 2 diabetes mellitus without complications; G47.30 Sleep apnea, unspecified; I48.91 Unspecified atrial fibrillation; I50.9 Heart failure, unspecified; K21.9 Gastro-esophageal reflux disease without esophagitis; Z87.891 Personal history of nicotine dependence
CPT/HCPCS: 29125; 73080; 73110; 73130; 99284-25; A9270

== ENCOUNTER → 2024-11-16 | Outpatient (CLI) | payer OTHER | END | disposition home or self-care (01) | LOC: LAB SHORT 17:19 | DX: R53.1 Weakness (principal) | CPT/HCPCS: 87086 ==